=== PATIENT | male | born 1950 | race Two or more races ===

== ENCOUNTER 2022-01-09 14:31 | Inpatient (IN) | payer MEDICARE, MEDICAID ==
[~2022-01-09] VITALS: Ht 167.6 cm; Wt 71.0 kg
[2022-01-09] MEDS ORDERED: ALBUTEROL (0.083%) 2.5MG/3ML NEB HHN STA (14:33)
[2022-01-09] MEDS ORDERED: IPRATROPIUM BROMIDE (0.02%) 0.5MG/2.5ML NEB HHN STA (14:33)
[2022-01-09] MEDS ORDERED: METHYLPREDNISOLONE SOD SUCC 125 MG/2 ML VIAL IV STA (14:33)
[2022-01-09 15:04] LABS: BASOPHILS % 0.5 % (0.0-2.0); EOSINOPHILS % 1.9 % (0.0-5.0); HEMATOCRIT. 48.1 % (42.0-52.0); HEMOGLOBIN. 15.9 g/dL (14.0-18.0); LYMPHOCYTES % 38.6 % (20.0-50.0); MEAN CORPUSCULAR HEMOGLOBIN 31.6 pg (28.0-32.0); MEAN CORPUSCULAR VOLUME 95.6 fL (80.0-94.0); MEAN PLATELET VOLUME 8.7 fl (7.4-10.4); MONOCYTES % 9.4 % (2.0-8.0); NEUTROPHILS % 49.6 % (40.0-76.0); PLATELET 182 x1000/uL (130-400); RED BLOOD CELL COUNT 5.02 mill/uL (4.7-6.1); RED CELL DISTRIBUTION WIDTH 14.7 % (11.6-14.6)
[2022-01-09 15:16] LABS: CHLORIDE 107 mEq/L (98-107)
[2022-01-09 15:25] LABS: ETHANOL BLOOD < 10 mg/dL
[2022-01-09 16:45] LABS: BG BASE EXCESS -0.6 mmol/L (-2.0-2.0); BG DEOXYHEMOGLOBIN 0.3 % (0.0-5.0); BG HCO3 ACT 24.3 mmol/L (22.0-26.0); BG METHEMOGLOBIN 0.2 % (0.0-1.5); BG OXYGEN SATURATION 99.7 % (92.0-98.5); BG OXYHEMOGLOBIN 99.5 % (94.0-97.0); BG PCO2 40.9 mmHg (35.0-45.0); BG PH 7.392 (7.350-7.450); BG PO2 525.6 mmHg (75.0-100.0); BG SAMPLE SITE RIGHT RADIAL; BG TOTAL HEMOGLOBIN 14.5 g/dL (12.0-18.0); BG VENT MODE MASK - BIPAP
[2022-01-09] MEDS ORDERED: ONDANSETRON HCL 4MG/2ML INJ IV PRN (19:15)
[2022-01-09] MEDS ORDERED: DIPHENHYDRAMINE 50MG/ML VIAL IV PRN (19:15)
[2022-01-09] MEDS ORDERED: ACETAMINOPHEN 325MG TABLET PO PRN (19:15)
[2022-01-09] MEDS ORDERED: CLONIDINE 0.1MG TABLET PO PRN (19:15)
[2022-01-09] MEDS: METHYLPREDNISOLONE SOD SUCC 125 MG/2 ML VIAL IV SCH (21:49)
[2022-01-09 23:54] VITALS: BP 151/80
[2022-01-09 23:55] VITALS: BP 151/80
[2022-01-10] VITALS (7 sets, daily range): BP systolic 113–154; BP diastolic 69–95
[2022-01-10] MEDS: METHYLPREDNISOLONE SOD SUCC 125 MG/2 ML VIAL IV SCH ×2 (03:43→08:58)
[2022-01-10] MEDS: IPRATROPIUM/ALBUTEROL 0.5-3(2.5)MG/3ML NEB HHN SCH (04:10)
[2022-01-10] MEDS: IPRATROPIUM/ALBUTEROL 0.5-3(2.5)MG/3ML NEB HHN PRN ×2 (08:04→12:58)
[2022-01-10 09:00] LABS: CHLORIDE 105 mEq/L (98-107)
[2022-01-10 11:20] LABS: BASOPHILS % 0.1 % (0.0-2.0); HEMATOCRIT. 38.9 % (42.0-52.0); LYMPHOCYTES % 8.4 % (20.0-50.0); MEAN CORPUSCULAR HEMOGLOBIN 31.1 pg (28.0-32.0); MEAN CORPUSCULAR VOLUME 94.4 fL (80.0-94.0); MEAN PLATELET VOLUME 8.3 fl (7.4-10.4); MONOCYTES % 5.8 % (2.0-8.0); NEUTROPHILS % 85.7 % (40.0-76.0); PLATELET 109 x1000/uL (130-400); RED BLOOD CELL COUNT 4.12 mill/uL (4.7-6.1); RED CELL DISTRIBUTION WIDTH 14.8 % (11.6-14.6)
[2022-01-10 11:22] LABS: HEMOGLOBIN. 12.8 g/dL (14.0-18.0)
[2022-01-10] MEDS: METHYLPREDNISOLONE SOD SUCC 40 MG/ML VIAL IV SCH ×2 (15:17→21:02)
[2022-01-10] MEDS ORDERED: AZITHROMYCIN 500 MG TABLET PO NR (16:45)
[2022-01-10] MEDS: FAMOTIDINE 20MG/2ML VIAL IV SCH (21:02)
[2022-01-11] VITALS: BP 116/63
[2022-01-11] MEDS: METHYLPREDNISOLONE SOD SUCC 40 MG/ML VIAL IV SCH (06:49)
[2022-01-11 07:15] LABS: HEMATOCRIT. 36.9 % (42.0-52.0); HEMOGLOBIN. 12.4 g/dL (14.0-18.0); MEAN CORPUSCULAR HEMOGLOBIN 31.3 pg (28.0-32.0); MEAN PLATELET VOLUME 8.7 fl (7.4-10.4); MONOCYTES % 7.7 % (2.0-8.0); NEUTROPHILS % 84.3 % (40.0-76.0); PLATELET 108 x1000/uL (130-400); RED BLOOD CELL COUNT 3.97 mill/uL (4.7-6.1); RED CELL DISTRIBUTION WIDTH 14.7 % (11.6-14.6)
[2022-01-11 07:55] LABS: CHLORIDE 107 mEq/L (98-107)
[2022-01-11] MEDS: IPRATROPIUM/ALBUTEROL 0.5-3(2.5)MG/3ML NEB HHN SCH ×2 (07:59→11:39)
[2022-01-11 08:00] VITALS: BP 140/90
[2022-01-11] MEDS ORDERED: AZITHROMYCIN 250 MG TABLET PO SCH (09:00)
[2022-01-11] MEDS: FAMOTIDINE 20MG/2ML VIAL IV SCH (09:12)
[2022-01-11] MEDS ORDERED: ALBU18HF2 IH (09:14)
[2022-01-11] MEDS ORDERED: FAMO20TA8 MT (09:14)
[2022-01-11] MEDS ORDERED: MED4 MT (09:14)
[2022-01-11 11:19] VITALS: BP 140/90
== END 2022-01-11 12:51 | disposition home health service (06) | DRG 189 ==
LOC: ER 14:31 → 3WST 17:40 → EDBEDREQTM 17:41 → EDBEDREQ 17:41 → ENRESERV 19:03 → CANRESERV 19:03 → ENRESERV 22:15
PROVIDERS: ADMIT Internal Medicine; ATTEND Internal Medicine
PROC: 5A09357 Assistance with Respiratory Ventilation, Less than 24 Consecutive Hours, Continuous Positive Airway Pressure (ICD-10-PCS; principal; 2022-01-09)
DX: J96.21 Acute and chronic respiratory failure with hypoxia (principal); J44.1 Chronic obstructive pulmonary disease with (acute) exacerbation; D53.9 Nutritional anemia, unspecified; Z20.822 Contact with and (suspected) exposure to COVID-19; I10 Essential (primary) hypertension; Z99.81 Dependence on supplemental oxygen; Z87.891 Personal history of nicotine dependence; Z82.49 Family history of ischemic heart disease and other diseases of the circulatory system
CPT/HCPCS: 36415; 36600; 71045; 80048; 80053; 80320; 82375; 82805; 83880; 84484; 85025; 87426; 93005; 93970; 99291; C9803; J2920; J2930; J3490; G0480